=== PATIENT | female | born 1945 | race Two or more races ===

== ENCOUNTER 2019-07-21 23:59 | Emergency (ER) | payer OTHER, MEDICAID ==
[~2019-07-21] VITALS: Ht 152.4 cm; Wt 63.0 kg
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
[2019-07-22] MEDS ORDERED: IBUPROFEN 400 MG TABLET ONE (00:23)
[2019-07-22] MEDS ORDERED: IBUPROFEN 400 MG TABLET PO ONE (00:30)
--- NOTE | 2019-07-22 00:42 | NUR ---
[facility] AT BEDSIDE
--- NOTE | 2019-07-22 01:35 | NUR ---
Patient discharged to home in stable condition. Written and verbal after care instructions given. Patient verbalizes understanding of instruction and RX. PT ambulatory with a steady gait. Pt given taxi voucher.vss.
[2019-07-22 01:36] VITALS: BP 136/72
== END 2019-07-22 01:53 | disposition home or self-care (01) ==
LOC: ER 07-22 00:01
DX: M25.511 Pain in right shoulder (principal); M25.551 Pain in right hip; M79.18 Myalgia, other site; R07.89 Other chest pain; I10 Essential (primary) hypertension; E78.5 Hyperlipidemia, unspecified; Z95.0 Presence of cardiac pacemaker; Y08.89XA Assault by other specified means, initial encounter; Y93.89 Activity, other specified; Y92.89 Other specified places as the place of occurrence of the external cause; Y99.8 Other external cause status
CPT/HCPCS: 71045-TC; 73030-TC; 73502